=== PATIENT | female | born 1990 | race Caucasian/White ===

== ENCOUNTER 2017-08-02 23:38 | Emergency (ER) | payer OTHER ==
[~2017-08-02] VITALS: Ht 170.2 cm; Wt 93.9 kg
[~2017-08-02 23:38] MED LIST: ADDERALL; ALPRAZOLAM; CLARITIN10 MG/TAB; CLEOCIN PO; CLINDAMYCIN HC300 MG PO; EFFEXOR; KEFLEX500 MG PO; LORTAB 10-3251 EACH; METROGEL-VAGINA70 GM VG; PYRIDIUM PO; SAPHRIS10 MG; SEROQUEL PO; TYLENOL #3 PO; ULTRAM PO; VOLTAREN75 MG PO
== END 2017-08-03 01:34 | disposition home or self-care (01) ==
LOC: CED 23:38
DX: S61.432A Puncture wound without foreign body of left hand, initial encounter (principal); S61.431A Puncture wound without foreign body of right hand, initial encounter; S60.572A Other superficial bite of hand of left hand, initial encounter; S60.571A Other superficial bite of hand of right hand, initial encounter; F17.210 Nicotine dependence, cigarettes, uncomplicated; Z88.0 Allergy status to penicillin; Z88.2 Allergy status to sulfonamides; Z79.899 Other long term (current) drug therapy; W54.0XXA Bitten by dog, initial encounter; Y92.009 Unspecified place in unspecified non-institutional (private) residence as the place of occurrence of the external cause
CPT/HCPCS: 99283